=== PATIENT | male | born 1940 | race Caucasian/White ===

== ENCOUNTER → 2019-11-18 13:58 | Outpatient (CLI) | payer MEDICARE, BC, SELFPAY ==
--- NOTE | 2019-11-18 14:26 | DI.MG.S_ITS ---
Patient Name: DARI MATTA date: 1940 Sex: M Attending Physician: Moiz Indications: Date: 11/18/2019 14:04 At the request of: JESSICA CASEY Procedure: MM diagnostic mammo BI MALE BILATERAL DIGITAL DIAGNOSTIC MAMMOGRAM 3D/2D: 11/18/2019 CLINICAL: Right breast lump. No prior exams were available for comparison. There is an isodense asymmetry in the right breast immediately posterior to the nipple in the retroareolar region. No other significant masses, calcifications, or other findings are seen in either breast. IMPRESSION: INCOMPLETE: NEEDS ADDITIONAL IMAGING EVALUATION The equal density asymmetry in the right breast likely represents fibroglandular tissue. An ultrasound was recommended to confirm, and was scheduled to immediately follow this mammogram. This exam was interpreted at Station ID: [id number]. NOTE: For mammograms, a report in lay terms will be sent to the patient. Approximately 15% of breast malignancies will not be visualized mammographically. In the management of a palpable breast mass, a negative mammogram must not discourage biopsy of a clinically suspicious lesion. Electronically Signed By: Bhargav Napoles M.D. jr/:11/18/2019 14:45:02 ACR BI-RADS Category 0: Incomplete [id number]
--- NOTE | 2019-11-18 14:27 | DI.US.S_ITS ---
Patient Name: DARI MATTA date: 1940 Sex: M Attending Physician: Moiz Indications: Date: 11/18/2019 14:42 At the request of: JESSICA CASEY Procedure: US breast RT limited LIMITED ULTRASOUND OF RIGHT BREAST: 11/18/2019 CLINICAL: Rt breast palpable lump. Comparison is made to exam dated: 11/18/2019 [facility]. Color flow and real-time ultrasound of the right breast retroareolar were performed. Yepez scale images of the real-time examination were reviewed. No suspicious finding in the right retro-areolar breast. Benign very mild gynecomastia in the sub-areolar right breast. IMPRESSION: BENIGN There is no sonographic evidence of malignancy. Benign very mild gynecomastia in the sub-areolar right breast. This exam was interpreted at Station ID: [id number]. Electronically Signed By: Bhargav Napoles M.D. jr/:11/18/2019 15:11:56 letter sent: Normal Exam Ultrasound BI-RADS: 2 Benign
== END ==
PROVIDERS: Family Provider Family Medicine; PCP Family Medicine; Referring Provider Nurse Practitioner Family; Visit Provider Nurse Practitioner Family
DX: R92.8 Other abnormal and inconclusive findings on diagnostic imaging of breast (principal); N62 Hypertrophy of breast
CPT/HCPCS: 76642; 77066; G0279

== ENCOUNTER → 2020-09-18 16:01 | Outpatient (CLI) | payer MEDICARE, BC, SELFPAY ==
--- NOTE | 2020-09-18 | DI.MRI.S_ITS ---
PROCEDURE: MR CERVICAL SPINE WO CON INDICATIONS: Cervical disc disorder with radiculopathy TECHNIQUE: Noncontrast sagittal T1 spin echo and T2 fast spin echo, sagittal STIR, foraminal oblique sagittal T2 fast spin echo, and axial gradient echo or T2 fast spin echo through the cervical spine. COMPARISON: None. FINDINGS: Image quality: Excellent. Alignment and Curvature: There is trace, approximately 2-3 millimeters of C7-T1 anterolisthesis.. There is straightening normal cervical spine curvature. Bone Marrow: Reactive endplate changes noted adjacent to the C3-C4, C4-C5, C5-C6 and C6-C7 discs. Benign, intraosseous hemangioma noted in the T1 vertebral body. Subchondral chronic reactive change noted in the dens process of the C2 vertebral body and in the lateral masses of C1 and C2 vertebral bodies. Spinal Cord: Visualized spinal cord has normal size and signal. No cerebellar tonsillar herniation. Paraspinous Soft Tissues: No paravertebral masses. Prevertebral soft tissues are normal in thickness. C2-C3: Loss of disc signal. Mild, diffuse disc bulge. Mild right moderate left facet hypertrophy. Mild narrowing of the central canal. Severe bilateral neural foraminal narrowing with compression of the exiting C3 nerve roots. C3-C4: Loss of disc signal and height. Mild, diffuse disc bulge. Moderate bilateral facet hypertrophy. Moderate bilateral uncovertebral joint hypertrophy. Moderate narrowing of the central canal. Severe bilateral neural foraminal narrowing with compression of the exiting C4 nerve roots. C4-C5: Loss of disc signal and height. Mild to moderate diffuse disc bulge. Central/left central disc protrusion. Moderate bilateral facet and uncovertebral joint hypertrophy. Moderate to severe narrowing of the central canal with slight compression of the anterior left margin of the cervical spinal cord. Severe bilateral neural foraminal narrowing with compression of the exiting C5 nerve roots. C5-C6: Loss of disc signal and height. Mild, diffuse disc bulge. Moderate bilateral facet and uncovertebral joint hypertrophy. Moderate narrowing of the central canal. Severe bilateral neural foraminal narrowing with compression of the exiting C6 nerve roots. C6-C7: Loss of disc signal and height. Mild, diffuse disc bulge. Moderate bilateral facet and uncovertebral joint hypertrophy. Moderate narrowing of the central canal. Severe bilateral neural foraminal narrowing with compression of the exiting C7 nerve roots. C7-T1: Loss of disc signal. Mild, diffuse disc bulge. Moderate bilateral facet hypertrophy. Mild narrowing of the central canal. Moderate right and severe left neural foraminal narrowing with compression of the exiting left C8 nerve root. IMPRESSION: 1. Multilevel degenerative disc disease. 2. Multilevel facet and uncovertebral arthropathy. 3. Moderate to severe C4-C5 central canal narrowing. 4. Severe bilateral C2-C3, C3-C4, C4-C5, C5-C6 and C6-C7 neural foraminal narrowing with compression of the exiting bilateral C3, C4, C5, C6 and C7 nerve roots. Severe left C7-T1 neural foraminal narrowing with compression of the exiting left C8 nerve root. Dictated by: Joan Rodgers MD, PhD on 09/21/2020 at 10:33 Approved by: Joan Rodgers MD, PhD on 09/21/2020 at 10:41
== END ==
PROVIDERS: Family Provider Family Medicine; PCP Internal Medicine; Referring Provider Internal Medicine; Visit Provider Internal Medicine
DX: M50.11 Cervical disc disorder with radiculopathy, high cervical region (principal); M47.22 Other spondylosis with radiculopathy, cervical region; M48.02 Spinal stenosis, cervical region
CPT/HCPCS: 72141

== ENCOUNTER → 2020-10-20 12:39 | Outpatient (CLI) | payer MEDICARE, BC, SELFPAY ==
--- NOTE | 2020-10-20 12:41 | DI.MRI.S_ITS ---
PROCEDURE: MR LUMBAR SPINE WO CON INDICATIONS: Radiculopathy, lumbar region TECHNIQUE: Noncontrast sagittal T1 spin echo and T2 fast echo, sagittal STIR, axial T1 and T2 fast spin echo through the lumbar spine. In cases with scoliosis, additional coronal T2 fast spin echo may be performed. COMPARISON: [facility], CR, XR LUMBAR SPINE 2 OR 3 VIEWS, 10/08/2019, 16:18. [facility], MR, L-SPINE WITHOUT CONTRAST, 10/03/2014, 10:05. FINDINGS: Image quality: Excellent. Alignment and Curvature: There is normal bony alignment. Bone Marrow: Marrow is of normal overall signal. No acute vertebral body compression fractures. Spinal Cord: Conus medullaris terminates at the L1 level. Visualized cord demonstrates normal signal and size. Paraspinous Soft Tissues: No paravertebral masses. Mild enlarged appearance of previously identified simple left renal cyst. Discs: Severe desiccation present at L3-4, mild to moderate throughout the remainder of the lumbar spine. L1-L2: Mild disc bulge without spinal stenosis. Minimal left foraminal narrowing, slightly progressive. Facet and ligamentum flavum hypertrophy are present. L2-L3: Mild disc bulge with moderate spinal stenosis, progressive. Moderate bilateral foraminal narrowing with facet and ligamentum flavum hypertrophy. L3-L4: Mild disc bulge with minimal spinal stenosis, improved compared to prior exam. Previous protrusion is not visualized. There is severe bilateral foraminal narrowing, right greater than left with nerve root compression of the exiting right L3 nerve root, more prominent when compared to prior exam. Facet and ligamentum flavum hypertrophy are present. L4-L5: Mild disc bulge with [id number] spinal stenosis, unchanged. Moderate bilateral foraminal narrowing with facet and ligamentum flavum hypertrophy. No interval change. L5-S1: Mild disc bulge with minimal to mild spinal stenosis. Severe left and moderate right foraminal narrowing, progressive on the left. Facet and ligamentum flavum hypertrophy are present. IMPRESSION: 1. Multilevel degenerative changes with progression as noted above. 2. Multilevel foraminal narrowing most severe at L3-4 and L5-S1 predominantly secondary to facet arthropathy. Dictated by: Virginia Coffey M.D. on 10/20/2020 at 15:12 Approved by: Virginia Coffey M.D. on 10/20/2020 at 15:46
== END ==
PROVIDERS: Family Provider Family Medicine; PCP Internal Medicine; Referring Provider Physical Medicine & Rehabilitation; Visit Provider Physical Medicine & Rehabilitation
DX: M47.26 Other spondylosis with radiculopathy, lumbar region (principal); M47.27 Other spondylosis with radiculopathy, lumbosacral region; M48.061 Spinal stenosis, lumbar region without neurogenic claudication; M48.07 Spinal stenosis, lumbosacral region
CPT/HCPCS: 72148

== ENCOUNTER → 2022-03-16 13:05 | Outpatient (CLI) | payer MEDICARE, BC, SELFPAY ==
--- NOTE | 2022-03-16 | DI.CT.S_ITS ---
PROCEDURE: CT CERVICAL SPINE WO CON INDICATIONS: Cervicalgia TECHNIQUE: Noncontrast 3 mm thick sections acquired from the skull base to the T4 level. Sagittal and coronal reformats were then constructed. For radiation dose reduction, the following was used: automated exposure control, adjustment of mA and/or kV according to patient size. COMPARISON: None. FINDINGS: Image quality: Excellent. Bones: No fractures or dislocations. Trace degenerative anterolisthesis of C2 on C3 and of C3 on C4. Trace degenerative retrolisthesis of C4 on C5 and C6 on C7. Mild degenerative anterolisthesis of C7 on T1. Visualized superior ribs are intact. C1-C2: Severe bilateral facet arthropathy, left greater than right. Bilateral foraminal osteophytes results in bilateral foraminal narrowing. C2-C3: Bilateral uncovertebral joint hypertrophy. No canal stenosis. Bilateral facet hypertrophy, left greater than right. Severe bilateral foraminal narrowing with bilateral foraminal C3 nerve root impingement. C3-C4: Posterior osteophyte. Mild canal stenosis. Bilateral facet hypertrophy, right greater than left. Bilateral uncovertebral joint hypertrophy. Severe bilateral foraminal narrowing with bilateral foraminal C4 nerve root impingement. C4-C5: Posterior disc plus osteophyte. Mild canal stenosis. Bilateral uncovertebral joint hypertrophy. Moderate bilateral foraminal narrowing. C5-C6: Posterior osteophyte. Question mild canal stenosis. Bilateral uncovertebral joint hypertrophy. Severe right and moderate left foraminal narrowing. C6-C7: Posterior disc post osteophyte. Moderate canal stenosis. Bilateral uncovertebral joint hypertrophy. Severe bilateral foraminal narrowing. C7-T1: Anterolisthesis of C7 on T1. No significant central canal stenosis. Severe bilateral foraminal narrowing. Soft tissues: Prevertebral soft tissues are normal in thickness. No paravertebral hematomas. No apical pneumothoraces. IMPRESSION: 1. Severe cervical spondylitic change. 2. Multilevel canal stenosis, including moderate canal stenosis at C6-C7. 3. Significant multilevel bilateral foraminal narrowing as described above. Dictated by: Lloyd Reveles M.D. on 03/16/2022 at 15:47 Approved by: Lloyd Reveles M.D. on 03/16/2022 at 15:56
== END ==
PROVIDERS: Family Provider Family Medicine; PCP Internal Medicine; Referring Provider Neurological Surgery; Visit Provider Neurological Surgery
DX: M47.812 Spondylosis without myelopathy or radiculopathy, cervical region (principal); M48.02 Spinal stenosis, cervical region; M54.2 Cervicalgia
CPT/HCPCS: 72125

== ENCOUNTER → 2023-01-21 13:42 | Outpatient (CLI) | payer MEDICARE, BC, SELFPAY ==
--- NOTE | 2023-01-21 13:44 | DI.MRI.S_ITS ---
PROCEDURE: MR LUMBAR SPINE WO CON INDICATIONS: Spinal stenosis, lumbar region TECHNIQUE: Noncontrast sagittal T1 spin echo and T2 fast echo, sagittal STIR, and T2 fast spin echo through the lumbar spine. In cases with scoliosis, additional coronal T2 fast spin echo may be performed. COMPARISON: [facility], MR, MR LUMBAR SPINE WO CON, 10/20/2020, 12:51. FINDINGS: Image quality: Excellent. Alignment and Curvature: Levocurvature of the lumbar spine. Straightening of normal lumbar lordosis. Minimal retrolisthesis of L3 on L4. Bone Marrow: Multilevel degenerative endplate changes, most pronounced at L3-L4. Marrow is of normal overall signal. No acute vertebral body compression fractures. Spinal Cord: Conus medullaris terminates at the L1 level. Visualized cord demonstrates normal signal and size. Paraspinous Soft Tissues: No paravertebral masses. Left renal simple appearing cyst. T12-L1: No central canal or neural foraminal stenosis. L1-L2: Disc desiccation and small disc bulge. No central canal stenosis. Facet arthropathy. No neural foraminal stenosis. L2-L3: Disc desiccation and height loss with a posterior disc bulge. Facet arthropathy. Moderate central canal stenosis. Progression of right lateral recess stenosis with abutment versus impingement the descending right L3 nerve root. Stable moderate bilateral neural foraminal stenosis. L3-L4: Severe disc desiccation and height loss. Minimal posterior disc bulge. Facet arthropathy and thickening of the ligamentum flavum. No significant central canal stenosis. Stable severe bilateral neural foraminal stenosis, right greater than left. L4-L5: Disc desiccation and height loss with small posterior disc bulge. Facet arthropathy and thickening of ligamentum flavum. Stable mild to moderate central canal stenosis. Stable moderate bilateral neural foraminal stenosis. L5-S1: Disc desiccation and posterior disc bulge. Mild central canal stenosis is stable. Facet arthropathy and thickening of the ligamentum flavum. Stable severe left and moderate right neural foraminal stenosis. IMPRESSION: 1. Multilevel degenerative changes of the lumbar spine. There is progression of right lateral recess stenosis L2-L3 with abutment versus impingement of the descending right L3 nerve root. Otherwise, degenerative changes are grossly similar compared to prior. 2. Multilevel neural foraminal stenosis, severe at L3-L4 and L5-S1. Dictated by: Hector Mustafa M.D. on 01/23/2023 at 8:56 Approved by: Hector Mustafa M.D. on 01/23/2023 at 9:06
== END ==
PROVIDERS: Family Provider Family Medicine; PCP Internal Medicine; Referring Provider Physical Medicine & Rehabilitation; Visit Provider Physical Medicine & Rehabilitation
DX: M48.062 Spinal stenosis, lumbar region with neurogenic claudication (principal); M48.07 Spinal stenosis, lumbosacral region; M47.816 Spondylosis without myelopathy or radiculopathy, lumbar region; M47.817 Spondylosis without myelopathy or radiculopathy, lumbosacral region
CPT/HCPCS: 72148

== ENCOUNTER → 2024-08-27 13:03 | Outpatient (CLI) | payer MEDICARE, BC, SELFPAY ==
--- NOTE | 2024-08-27 13:39 | EKG_ITS ---
[address] [address] Test Date: 2024-08-27 Pat Name: Willam Wilson Department: [facility] Room: Gender: Male Bioinformatics Scientist: DIONE : 1940 Requested By: Order Number: [id number] Reading MD: Ezequiel Bain MD Measurements Intervals [place] Rate: 55 P: 21 [place]: 204 QRS: -4 QRSD: 82 T: 21 QT: 446 QTc: 426 Interpretive Statements Sinus bradycardia Low voltage QRS Electronically Signed On 08-28-2024 6:57:17 PDT by Ezequiel Bain MD
[2024-08-27 13:49] LABS: Add Manual Diff / Slide Review NO; Basophils Absolute Auto 0 /uL (0-100); Basophils Percent Auto 0.8 % (0-2); Eosinophils Absolute Auto 300 /uL (0-450); Eosinophils Percent Auto 5.2 % (2-4); Hematocrit 39.5 % (41-53); Hemoglobin 14.1 g/dL (13.5-17.5); Lymphocytes Absolute Auto 1200 /uL (1100-4500); Lymphocytes Percent Auto 23.1 % (25-40); Mean Corpuscular HGB Conc 35.6 % (30-36); Mean Corpuscular Hemoglobin 35.1 PG (26-34); Mean Corpuscular Volume 98.5 fL (80-100); Monocytes Absolute Auto 600 /uL (0-900); Monocytes Percent Auto 10.9 % (3-14); Neutrophils Absolute Auto 3100 /uL (1500-7000); Platelet Count 296 X10^3/uL (150-400); Red Blood Cell Count 4.01 X10^6/uL (4.5-5.9); Red Cell Distribution Width 13.2 % (11.6-14.8); White Blood Cell Count 5.1 X10^3/uL (4.5-11.0)
[2024-08-27 13:57] LABS: Hemoglobin A1C% w Est Avg Glu 4.6 % (4.0-6.0)
[2024-08-27 14:04] LABS: BUN Creatinine Ratio 31.8 (6-22); Blood Urea Nitrogen 28 mg/dL (9-20); Calcium 10.2 mg/dL (8.4-10.2); Carbon Dioxide 26 mmol/L (22-32); Chloride 104 mmol/L (98-107); Estimated Glomerular Filt Rate > 60 mL/min (>60); Glucose 114 mg/dL (70-99); HEMOLYSIS < 15 (0-50); Potassium 4.3 mmol/L (3.4-5.1); Sodium 139 mmol/L (137-145)
== END ==
PROVIDERS: PCP Internal Medicine; Referring Provider Orthopaedic Surgery Foot and Ankle Surgery; Visit Provider Orthopaedic Surgery Foot and Ankle Surgery
DX: Z01.818 Encounter for other preprocedural examination (principal); R73.9 Hyperglycemia, unspecified; Z01.812 Encounter for preprocedural laboratory examination
CPT/HCPCS: 36415; 80048; 83036; 85025; 93005; 93010

== ENCOUNTER 2024-09-11 09:56 | Day surgery (SDC) | payer MEDICARE, BC, SELFPAY ==
[2024-09-03 08:42] VITALS: BMI 25.8
[2024-09-11] VITALS (9 sets, daily range): BP systolic 104–138; BP diastolic 59–78; PULSE 56–78; RESP 14–18; TEMP 36.3–37.1; O2SAT 93–98; BMI 25.8
--- NOTE | 2024-09-11 06:00 | DI.RAD.S_ITS ---
PROCEDURE: XR KNEE RT 1TO2V INDICATIONS: TKA RIGHT TECHNIQUE: 2 view(s) of the knee acquired. COMPARISON: None. FINDINGS: Bones: Patient is status post knee joint arthroplasty. Hardware components are in expected positions. Visualized bony structures are intact. Soft tissues: Overlying postoperative changes are noted. IMPRESSION: Expected post-operative appearance of a knee arthroplasty. Approved by: Rito Kuo M.D. on 09/11/2024 at 17:05
[2024-09-11] MEDS: ACETAMINOPHEN 325 MG TABLET 975 MG PO (10:31)
[2024-09-11] MEDS: LACTATED RINGERS 1,000 ML 42 ML IV ×2 (10:33→14:06)
--- NOTE | 2024-09-11 11:20 | PM.PREOP ---
Pre-operative Note Interval Note History & Physical reviewed/Exam performed by Physician: Yes Changes to H&P: No
--- NOTE | 2024-09-11 11:36 | P.OP_ITS ---
Operative Date/Time/Diagnoses Date of procedure: 09/11/24 Time of procedure: 11:45 Pre-op diagnosis: Right knee arthritis Post-op diagnosis: same Procedure & Clinicians Procedure: Right total knee arthroplasty CPT code 43921 Robotic assisted surgery [id number] Computer navigation assisted surgery [id number] Same procedure as scheduled: Yes Indications: The patient is a 83-year-old male with end-stage unnv-nr-ripn knee arthritis. The patient has a significant right varus knee arthritis. They have failed conservative treatment with activity modifications, injections, physical therapy and bracing. They has been indicated for total knee replacement. The risks and benefits of the procedure have been discussed with the patient even opportunity to ask questions. The risks of surgery include but are not limited to infection, malunion, nonunion, fracture, loosening, persistence of pain, damage to nerves and blood vessels, need for additional procedures, DVT, PE, cardiopulmonary complications and . The patient expressed a thorough understanding of the risks and benefits of surgery and has elected to proceed. Consent was signed in the office. During the operation the services of physician surgical supervisor were medically indicated and necessary to provide the exposure of the operative site for the surgical procedure and to maintain the limb in a proper position to carry out the procedure safely and efficiently. Without a qualified assistant broker being present this would extend the operative procedure and would have made the proc edure more technically difficult to perform. The surgical supervisor was medically necessary for the proper positioning, retraction and manipulation of the limb, proper exposure, and manipulation of the tissue for implantation implants and closure. Surgeon: Maria Esther Campo Care Team Coordinator Scheduler: Kumar Kent Anesthesia Type: General, Spinal, Peripheral nerve block and Local Operative Notes Findings: End-stage varus knee arthritis right knee full-thickness cartilage loss tricompartmental most involved medial compartment full-thickness cartilage loss. Closure Type: primary Specimen(s): none sent Prosthetic devices, grafts, tissues, transplants, or devices: Scott and nephew journey 2 BCS Femur cobalt chromium size 7 right Tibia size 6 right Poly 9 mm Patella 32 x7 0.5 round Shabana II Estimated Blood Loss (mL): 50 Blood products transfused: none Tourniquet time (min): 82 Procedure in detail: Patient was seen in the preoperative area where the patient and site of surgery were identified in the operative knee was marked informed consent confirmed. This was the right knee. Patient received the appropriate preoperative antibiotics this was 2 g of Ancef. And other preoperative medications and was taken to the operating room placed on operating table in the supine position. Spinal anesthetic were administered. The operative extremity was then prepped and draped in the standard sterile fashion with a nonsterile tourniquet high on the thigh. Patient was placed on the green foam bolsters. A lateral post was placed at the level of the proximal thigh /trochanter area as a lateral post. Formal time-out procedure was performed confirming the patient's side and site of surgery and administration of appropriate preoperative antibiotics and implants were in the room accounted for. All were in agreement. Patient received a preoperative dose of tranexamic acid and then a 2nd dose at tourniquet release Patient was prepped and draped in the standard sterile fashion and the foot was placed into the leg yanez. This was taken into high flexion and the incision was marked out over the anterior knee to the level of the medial tubercle tubercle. The Esmarch was then used for exsanguination and the tourniquet was inflated to 250 mmHg. Was made through the skin and subcutaneous tissue in high flexion this was then brought down into 30? of flexion for the medial parapatellar arthrotomy. A marker pen was used to rupert the arthrotomy site for later repair. Joint fluid was evacuated. The anterior osteophytes and soft tissues were removed. Routine medial release was initially made along the medial proximal tibia with Bovie. The patella was 1st cut using the saw sized and prepped and then subluxed throughout the case and protected. The leg was then taken into extension and the patella was everted and the pat mary was cut to accommodate the patellar button. This was sized to a 32 mm button for a 7.5 mm thickness to recreate the original dimensions of the patella. Poly was removed and the protector replaced and the patella was subluxed and the knee was taken back up into flexion and attention was returned to the femur. Then the rotational landmarks of Whitesides line and the trans epicondylar axis were marked on the femur with electrocautery. ACL and PCL were released. Then the Cori robotic pins were placed into the femur and tibia and the race set up. Landmarks were established and the robotic planning was commenced. Plan was developed and improved and adjusted as necessary to create a balanced knee. Preoperative alignment was 5? of varus plan postoperative alignment 2? of varus by applying 4? external rotation to the distal femur 1 degree of varus in the distal femur in 1 degree in the tibia. Additional 2 mm was taken off the distal femur for the flexion contracture. Knee was balanced to 1-2 mm in flexion and extension in the medial and lateral compartments. Plan was satisfactory the bur was used to remove the distal femur then the 5 in 1 cutting block was applied complete the femur cuts. Attention was then turned to the tibia and the tibial resection was made in accordance with the robotic planning. Knee was trialed and extension. This is still a little tight so additional 2 mm was taken off the tibia and checked on the robotic plan.9 mm spacer fit well in full extension and the expected planned alignment of 2? of varus was obtained. The trials were placed. And the femoral notch was cut a standard fashion using Reamer then slap hammer. The knee was trialed and the checked. Knee was balanced in flexion extension. Range of motion 0-140degrees was obtained. The rotation femoral trial was marked Bovie on the bone and checked with a long pauline. The tibia was then finished with a drill and flange cut and then The trial implants were removed. Then in extension the posterior capsule was injected with a mixture of 30 mL of 0.25% Marcaine and 20 mL of Exparel 266 mg, with to avoid excessive injection posterior laterally. The remainder of this was saved for the capsule and subcutaneous tissue and placed during cement curing. The wound and bone was irrigated with pulsatile lavage. This was then dried with a sponge. The components were verified and opened and the cement was mixed. Cement was applied to the components and then to the bone then the tibia was cemented in place 1st followed by the femur then the patella. Excess cement was removed. With care looking around the back of the knee. Remainder of the injection was injected around the capsule. trial poly was placed back in the leg was placed into extension for the patellar cementing. After this was cured approximately 15 minutes later and the dilute Betadine solution was placed for at least 3 minutes in the wound this was then irrigated out and the final poly was placed. This was a 9 mm poly. The tourniquet was released hemostasis was achieved. Final 1g of tranexamic acid was given IV at the time of tourniquet release. The capsule was closed with 1. Ethibond suture. Followed by a running Quill stitch. Subcutaneous layer was closed with 3-0 Vicryl suture. Skin was closed with a running V lock suture Stratafix Monocryl type suture and Dermabond. An Aquacel dressing was placed . An Felix wrap was applied. Anesthetic was terminated the patient was woken from anesthesia and taken to recovery room in good condition. There no immediate complications from this procedure. The patient will be maintained on a standard total knee replacement protocol with weight-bearing as tolerated. Complications: none Post-operative Condition: stable Disposition: PACU Plan for aftercare: Routine total knee postoperative care immediate weight-bearing as tolerated with the assistive devices. Immediate range of motion. Aspirin 81 mg b.i.d. for 6 weeks for DVT prophylaxis. Follow up in Orthopedic Clinic in 2 weeks. Commence physical therapy within 1 week.
[2024-09-11] MEDS: CEFAZOLIN 2 GM/100 ML PREMIX 100 ML IV (11:56)
[2024-09-11] MEDS: TRANEXAMIC ACID 1,000 MG VIAL 1000 MG INJ ×2 (11:58→13:42)
--- NOTE | 2024-09-11 12:24 | SUR.OPER ---
Supine on padded OR bed, head on pillow, arms secured on padded arm boards at <90 degrees abduction, legs uncrossed, safety belt at thigh, tape over blanket over lower left leg, right leg prepped into field
[2024-09-11] MEDS: BUPIVACAINE 0.25% W/ EPI 30 ML VIAL INJ (12:31)
[2024-09-11] MEDS: BUPIVACAINE LIPOSOME 266 MG/20 ML VIAL INJ (12:31)
[2024-09-11] MEDS: OXYCODONE IR 5 MG TABLET PO (15:05)
--- NOTE | 2024-09-11 15:15 | PT.IIE ---
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) Hx of cervical spine surgery (2014) Hx of eye surgery Hx of spinal surgery Hx of tonsillectomy Hx of vasectomy Medical History (Last Updated 09/03/24 @ 09:44 by Sobia Jones, RN) HTN (hypertension) Retinal tear Physical Therapy Inpatient Evaluation/Re-Eval M1 PT/OT-IP Prior Functional Status Start: 09/11/24 16:38 Freq: NEEDED Status: Active Protocol: Document 09/11/24 15:15 AB (Rec: 09/11/24 16:51 AB [id number]) Medical Review Prior Functional Status Medical History Reviewed Yes Communication able to make needs known Mobility and Gait pt stated that he was independent with all mobilities and ambulation without AD Social History Household Members spouse Living Arrangements House Number of Floors (Floors) One Floor Number of Stairs To Enter/Railing? 2 steps to enter from the front with wide bilateral rails and can only hold on to one rail at a time 2 steps from the garage L rail ascending Home Environment Standard Height Toilet,Walk in Shower,Built-In Shower Seat Home Equipment Front Wheel Walker,Crutches, Bedside Commode,Hand Held Shower,Grab Bars In Shower Additional Social History Comment pt's son lives ~ 20 min A and can assist if needed M2 PT-IP Current Condition Start: 09/11/24 16:38 Freq: NEEDED Status: Active Protocol: Document 09/11/24 15:15 AB (Rec: 09/11/24 16:51 AB [id number]) Physical Therapy Current Condition Current Condition Evaluation Date 09/11/24 Treatment Diagnosis s/p R TKA; difficulty in walking Onset Date 09/11/24 M3 PT-IP Subjective Start: 09/11/24 16:38 Freq: NEEDED Status: Active Protocol: Document 09/11/24 15:15 AB (Rec: 09/11/24 16:51 AB [id number]) Subjective Physical Therapy Visit Type Type Initial Evaluation Visit Start Time 15:15 Visit Stop Time 16:10 Number of CENA Visits 0 Physical Therapy Visit Comments Patient Comments agreeable to do PT Therapy Pain Assessment Pain When Pain Assessed At Rest Pain Present Pain Present Pain Reported Location Right Knee Intensity 4 Scale Used Numeric (0 - 10) Pain Behaviors Guarding Pain Management Techniques Distraction,Modification of Treatment M4 PT-IP Mobility and Gait Start: 09/11/24 16:38 Freq: NEEDED Status: Active Protocol: Document 09/11/24 15:15 AB (Rec: 09/11/24 16:51 AB [id number]) PT-Bed Mobility Assessment Supine to Sit Supine to Sit Standby Assistance PT-Transfer Assessment Sit to and From Stand Sit to and from Stand Contact Guard Assistance,1 Person Assistance,Use of Upper Extremities Equipment Transfer Assistive Device Gait Belt,Front Wheeled Walker Orthotic/Prosthetic Devices or Brace: No Comments Mobility Comments pt seen in PACU. spouse and son with pt. obtained PLOF and home set up. pt wanting to go in through the garage with L rail ascending. pt provided with Post-op folder and reviewed contents. educated on HEP. pt completed supine to sit SBA . able to sit on EOb SBA. no c /o dizziness. sit to stand CGA and ambulated ~ 40 ft using FWW CGA. pt sat back on EOB. caregiver training conducted. educated spouse on how to use safety belt and how to assist pt. spouse was able to put safety belt on and assisted pt with ambulation CGA ~ 20 ft. stair climbing training. simulated step using step stool and bed rail. pt completed up/down step holding on to bed rail with B hands min A and cues. PT assist pt on first set. pt completed again with spouse assisting. pt ambulated back to EOB. informed pt regarding safety and recommendation of going in throught the front side of the house using R rail instead of L. pt and family agreed. educated on car transfers. pt and family without further concerns. Gait Assessment Gait Gait Assistance Required: Contact Guard Assist,1 Person Assist Distance (Feet) 40 Able to Maintain Weight Bearing Status Yes During Gait Assistive Devices Assistive Device Gait Belt,Front Wheeled Walker Orthotic/Prosthetic Devices or Brace: No Gait Deviations General Gait Pattern Antalgic,Decreased Stride Length,Decreased Feet Clearance Factors Limiting Gait Function Factors Limiting Gait Function Decreased Activity Tolerance, Decreased Strength,Limited Range of Motion,Pain,Poor Balance,Poor Safety Awareness Stair Climbing Assessment Evaluation Level of Assist On Stairs Minimal Assistance Devices Stair Climbing Assistive Devices Left Railing Technique/Endurance Stair Climbing Direction Ascend and Descend Stair Climbing Technique Step to Step Number of Steps Climbed 1 Query Text: Stair Climbing Set # Repetitions (reps) 2 PT-Balance Assessment Sitting Balance and Reactions Static Sitting Balance Ability Normal Dynamic Sitting Balance Ability Normal Standing Balance and Reactions Static Standing Balance Ability Good Dynamic Standing Balance Ability Fair Device Used FWW M5 PT-IP Objective Assessments Start: 09/11/24 16:38 Freq: NEEDED Status: Active Protocol: Document 09/11/24 15:15 AB (Rec: 09/11/24 16:51 AB [id number]) Orientation Orientation/Cognition Level of Alertness Alert Orientation Name,Place,Situation Language Function Ability Hard of Hearing Safety Awareness Decreased Safety Awareness Memory Description No Deficits Noted Gross Range of Motion Lower Extremity ROM Assessment Right Impaired Impairments R knee: 10-90 deg Strength Lower Extremity Strength Assessment Right Impaired Hip 4/5 Knee 4-/5 Coordination Assessment Gross Coordination Gross Coordination WNL Sensation Assessment Sensation Gross Sensation WNL Muscle Tone Muscle Tone WNL Yes M6 PT-IP Treatment Start: 09/11/24 16:38 Freq: NEEDED Status: Active Protocol: Document 09/11/24 15:15 AB (Rec: 09/11/24 16:51 AB [id number]) Physical Therapy Treatment Exercises Exercises Heel Slides Education Education Provided Precautions,Weight Bearing Status,Post-Op Packet,Safety M7 PT-IP Assessment and Plan Start: 09/11/24 16:38 Freq: NEEDED Status: Active Protocol: Document 09/11/24 15:15 AB (Rec: 09/11/24 16:51 [id number]) PT Summary Assessment and Plan Potential Rehabilitation Potential Good Status of Condition at Evaluation Stable Summary Impairments Pain,ROM,Strength,Balance, Coordination,Sensation,Tone, Cognition,Bed Mobility, Transfers,Gait,Activity Tolerance Assessment Summary pt is an 83 y/o M s/p R TKA POD 0. pt seen in the PACU. pt is WBAT on RLE. pt requiring CGA with mobilities and min A with stair climbing. caregiver training conducted and spouse was able to safely assist pt. pt has outpt PT set up. Goals Bed Mobility Goal Independent Transfer Goal Independent,Front Wheeled Walker Gait Goal Independent,Front Wheel Walker Gait Distance 200 Other Goals up/down 2 steps 1 rail mod I Days to Meet Goals 3 Frequency of Treatment Frequency Of Treatment Twice a Day Treatment Plan Physical Therapy Treatment Plan Bed Mobility Training,Transfer Training,Gait Training, Therapeutic Exercise,Balance Retraining,Post Op Education, Discharge Planning,Hot or Cold Pack,Neuromuscular Re-ed, Coordination Retraining,Manual Therapy Weight Bearing Status Weight Bearing Status Weight Bear as Tolerated Allowed Weight Bearing Amount (enter % RLE WBAT or #) (%) Recommendations To Nursing Amount of Assist Needed 1 Person Assist Discharge Recommendations PT Discharge Recommendations Home with Assistance, Outpatient PT Transportation Needs at Discharge Private Vehicle - PT assist 1
== END 2024-09-11 16:20 | disposition home or self-care (01) ==
LOC: OR 09:58 → AC 10:00
PROVIDERS: Referring Provider Orthopaedic Surgery Foot and Ankle Surgery; Visit Provider Orthopaedic Surgery Foot and Ankle Surgery
PROC: 0SRC0JZ Replacement of Right Knee Joint with Synthetic Substitute, Open Approach (ICD-10-PCS; CPT 27447; principal; 2024-09-11 11:45)
DX: M17.11 Unilateral primary osteoarthritis, right knee (principal); G89.18 Other acute postprocedural pain; M54.50 Low back pain, unspecified; M54.16 Radiculopathy, lumbar region; M21.161 Varus deformity, not elsewhere classified, right knee; M25.761 Osteophyte, right knee
CPT/HCPCS: 27447; 20985; 64447; 64450; 73560; 97161; 97530; C1776; C1713; J0666; J0690; J2704; J3010